=== PATIENT | male | born 1995 | race Caucasian/White ===

== ENCOUNTER 2016-08-10 21:24 | Emergency (ER) | payer BC ==
[~2016-08-10] VITALS: Ht 182.9 cm; Wt 81.8 kg
[2016-08-10 21:26] VITALS: BP 132/77; TEMP 98.3
[2016-08-10 22:35] VITALS: PULSE 58
== END 2016-08-10 22:35 | disposition home or self-care (01) ==
LOC: COL.ER 21:24
DX: S90.31XA Contusion of right foot, initial encounter (principal); W21.03XA Struck by baseball, initial encounter; Y93.64 Activity, baseball; Y92.320 Baseball field as the place of occurrence of the external cause